=== PATIENT | female | born 1970 | race Caucasian/White ===

== ENCOUNTER 2016-09-21 07:19 | Observation (INO) | payer BC ==
[~2016-09-21] VITALS: Ht 149.9 cm; Wt 61.6 kg
[2016-09-23] MEDS ORDERED: LAMICTAL DPS100 MG PO (09:01)
[2016-09-23] MEDS ORDERED: LEVOTHYROXINE100 MCG PO (09:01)
[2016-09-23] MEDS ORDERED: DIFLUCAN DPS150 MG PO (09:01)
[2016-09-23] MEDS ORDERED: ZYPREXA10 MG PO (09:02)
[2016-09-23] MEDS ORDERED: NORCO 5-325 TA1 EACH PO (09:02)
[2016-09-23] MEDS ORDERED: DESYREL-DPS50 MG PO (09:02)
[2016-09-23] MEDS ORDERED: ZOFRAN4 MG PO (09:02)
[2016-09-23] MEDS ORDERED: METRONIDAZOLE500 MG PO (09:02)
--- NOTE | 2016-10-14 09:04 | OR ---
ADMIT: 09/21/2016 RM/LOC: [facility] MR#: [id number] [address] [id number] REJI, BOGDAN [address] [place] [address] Operative/Delivery Room Report SEX: F AGE: 46 : 1970 SURGERY DATE: 09/21/2016 SURGEON: Sandeep Daley MD PREOPERATIVE DIAGNOSIS: Left-sided breast cancer. POSTOPERATIVE DIAGNOSIS: Left-sided breast cancer. PROCEDURE PERFORMED: 1. Injection of Lymphazurin for sentinel lymph node identification. 2. Left-sided sentinel lymph node biopsy. 3. Left-sided nipple sparing mastectomy. SHANK CEMENTER HAND: SHILPA Kan. ANESTHESIA: General endotracheal. ESTIMATED BLOOD LOSS: Approximately 100 mL. DESCRIPTION OF PROCEDURE: After appropriate informed consent was obtained, the patient was brought to the operating room. General endotracheal anesthesia was induced. The patient's left breast was initially prepped just with alcohol around the nipple-areolar complex, and I injected 3 mL of Lymphazurin and under the nipple-areolar complex. The patient's left breast and axilla were then prepped and draped in sterile fashion. I started with the sentinel lymph node biopsy. The axilla was scanned with the gamma probe and the area of greatest intensity was identified. This incision was made with the PlasmaBlade, carried deep with PlasmaBlade until I identified a hot blue lymph node. This was excised in its entirety. The counts on the lymph node were around 1000. I checked the background count, now it was less than 100. Since the background count was appropriately low, I packed the wound with gauze and then proceeded with the mastectomy. She had had a previous subpectoral augmentation, so I elected to do a nipple sparing mastectomy and I leave the implant in place, and so I made an incision in the periareolar region. An infra-areolar incision was created and this was extended out laterally to give us enough space to be able to do the entire mastectomy. Incision was created with the PlasmaBlade. I first reflected the nipple off the breast tissue keeping that area fairly thin. I then created skin flaps radiating out circumferentially from my central incision. The vast majority of her breast tissue as would be expected after augmentation was high in the subclavicular region, so it took a while to dissect that tissue free keeping the skin flaps nice and thin beginning the entire extent of the breast tissue removed from the cephalad area. Once I had the skin flaps created, I then started reflecting the breast off the pec muscle again using the PlasmaBlade starting from cephalad and moving caudally. The entire breast tissue was reflected off the muscle in one piece. I was able to leave the implant alone. I did not enter into the submuscular pocket or into the capsule around the implant, but yet removed the entirety of the breast without leaving any breast tissue behind on the capsule or the muscle. So with this specimen removed, it ADMIT: 09/21/2016 RM/LOC: [facility] MR#: [id number] [address] [place] [id number] [place] [address] Operative/Delivery Room Report SEX: F AGE: 46 : 1970 was oriented with a single stitch superiorly, double stitch laterally. The wound was then copiously irrigated out with warm saline. She did have a fair bit of oozing from the muscle as they are doing the dissection and there were some areas that were still bleeding that I controlled with cautery. I irrigated the wound out again, once I was satisfied that everything was hemostatic, a 15-Lao round Maurice drain was placed through a separate stab and coiled underneath the skin flaps. The wounds were then closed with 3-0 Monocryl Plus in the dermal layer and then running 4-0 Monocryl in the subcuticular layer. The drain was sewn in place with nylon suture and placed to bulb suction. Sterile dressings were then applied. Boby Clifton assisted in this entire procedure. His help was necessary for retraction during this very difficult dissection. Sandeep Daley MD/ eddie JOB #: [id number] CC: Sandeep Daley, Attending Physician Carmita Helm, Family Physician MD Carmita Lomas MD
== END 2016-09-22 11:10 | disposition home or self-care (01) ==
LOC: WOR 07:19 → EDSTATUS 10:00 → RAD.S 10:00 → 2LDRP 18:07
PROVIDERS: ADMIT Surgery
PROC: 07B60ZX Excision of Left Axillary Lymphatic, Open Approach, Diagnostic (ICD-10-PCS; principal; 2016-09-21)
PROC: 0HRU0JZ Replacement of Left Breast with Synthetic Substitute, Open Approach (ICD-10-PCS; principal; 2016-09-21)
PROC: C71L1ZZ Planar Nuclear Medicine Imaging of Upper Chest Lymphatics using Technetium 99m (Tc-99m) (ICD-10-PCS; principal; 2016-09-21)
DX: C50.412 Malignant neoplasm of upper-outer quadrant of left female breast (principal); Z79.899 Other long term (current) drug therapy

== ENCOUNTER → 2017-01-20 | Outpatient (CLI) | payer BC ==
[~2017-01-20] MED LIST: DESYREL-DPS50 MG PO; DIFLUCAN DPS150 MG PO; LAMICTAL DPS100 MG PO; LEVOTHYROXINE100 MCG PO; METRONIDAZOLE500 MG PO; NORCO 5-325 TA1 EACH PO; ZOFRAN4 MG PO; ZYPREXA10 MG PO
== END | disposition home or self-care (01) ==
LOC: RAD.S 01-19 13:00
DX: N92.6 Irregular menstruation, unspecified (principal)